=== PATIENT | female | born 1945 | race Caucasian/White ===

== ENCOUNTER → 2016-06-08 | Outpatient (CLI) | payer OTHER ==
[~2016-06-08] MED LIST: CALC600T9 PO; CHOL1000 PO; CLON0.5T3 PO; DSY100 PO; DULO-24 PO; HYDR-5688 PO; LAMO200T PO; LAMO25TA PO; LPT20 PO; MULT-506 PO; POLY335019 PO; TRAZ50TA35 PO
--- NOTE | 2016-06-08 15:13 | DIAGNOSTIC IMAGING REPORT ---
3 phase bone scan BONE SCAN 3 PHASE LIMITED CLINICAL HISTORY: PAIN R SIDE TOTAL SHOULDER TECHNIQUE: Multiphase bone scan following the administration of 25 mCi technetium 99m MDP. COMPARISON STUDY: None FINDINGS: Vascular flow images are unremarkable. No areas of hyperemia are present. Blood pool images are unremarkable. Static delayed images demonstrate a slight increase in activity about the patient's humeral prosthetic. This is also seen adjacent to the screws at the level of the glenoid and tip of the acromion. IMPRESSION: Low-level activity about the patient's right shoulder prosthetic. This is slightly more extensive than would be expected at 9 months post procedure, raising the possibility of a stress related activity versus early loosening Electronically signed by: Simon Alvarez M.D. 06/08/2016 3:11 PM Dictated Date/Time: 06/08/2016 3:06 PM
== END | disposition home or self-care (01) ==
LOC: C.NUCL 09:29
PROVIDERS: ATTEND Orthopaedic Surgery
DX: M25.511 Pain in right shoulder (principal)

== ENCOUNTER → 2016-06-23 | Outpatient (CLI) | payer OTHER ==
[2016-06-23 13:59] LABS: BASO % 0.7 %; BASO ABS # 0.04 K/uL (0-0.2); COMPLETE YES; HEMATOCRIT 38.4 % (37-47); IG% 0.2 %; LYMPH % 29.3 %; MEAN CELL VOLUME 87.9 fL (80-100); MEAN CORPUSCULAR HEMOGLOBIN 30.4 pg (25-34); MEAN CORPUSCULAR HGB CONC 34.6 g/dl (32-36); MEAN PLATELET VOLUME 9.3 fL (7.4-10.4); MONO % 9.1 %; NEUT % 59.7 %; PLATELET COUNT 284 K/uL (130-400); RED BLOOD COUNT 4.37 M/uL (4.2-5.4); WHITE BLOOD COUNT 6.15 K/uL (4.8-10.8)
[2016-06-23 14:19] LABS: ALT/SGPT 20 U/L (12-78); BLOOD UREA NITROGEN 22 mg/dl (7-18); BUN/CREATININE RATIO 18.2 (10-20); CALCIUM 8.9 mg/dl (8.5-10.1); CARBON DIOXIDE 27 mmol/L (21-32); CHLORIDE 107 mmol/L (98-107); CHOLESTEROL 199 mg/dl (0-200); GLUCOSE 88 mg/dl (70-99); POTASSIUM 4.5 mmol/L (3.5-5.1); SODIUM 140 mmol/L (136-145)
[2016-06-23 14:27] LABS: ALB/GLOB RATIO 1.6 (0.9-2); ALKALINE PHOSPHATASE 54 U/L (45-117); AST/SGOT 19 U/L (15-37); CHOLESTEROL/HDL RATIO 3.6; HDL CHOLESTEROL 56 mg/dl; LDL CHOLESTEROL CALCULATED 121 mg/dl; THYROID STIMULATING HORMONE 0.935 uIu/ml (0.300-4.500); TRIGLYCERIDES 112 mg/dl (0-150); VERY LOW DENSITY LIPOPROT CALC 22 mg/dl
== END | disposition home or self-care (01) ==
LOC: C.LABBC 11:18
PROVIDERS: ATTEND Orthopaedic Surgery
DX: Z11.59 Encounter for screening for other viral diseases (principal); E78.5 Hyperlipidemia, unspecified; R73.9 Hyperglycemia, unspecified; E55.9 Vitamin D deficiency, unspecified; R31.29 Other microscopic hematuria; M25.511 Pain in right shoulder

== ENCOUNTER → 2017-01-28 | Outpatient (CLI) | payer OTHER ==
[~2017-01-28] MED LIST changes: -HYDR-5688 PO; -LAMO25TA PO
--- NOTE | 2017-01-29 07:52 | MAMMOGRAPHY REPORT ---
BILATERAL DIGITAL SCREENING MAMMOGRAM WITH CAD: 01/28/2017 CLINICAL HISTORY: Routine screening. Patient has no complaints. TECHNIQUE: Current study was also evaluated with a Computer Aided Detection (CAD) system. Bilateral CC and MLO views were obtained. COMPARISON: Comparison is made to exams dated: 01/15/2015 mammogram, 05/12/2012 mammogram, 05/07/2011 mammogram, 05/01/2010 mammogram - [facility], and 05/04/2008. BREAST COMPOSITION: There are scattered areas of fibroglandular density in both breasts. FINDINGS: No suspicious masses, calcifications, or areas of architectural distortion are noted in ei ther breast. There has been no significant interval change compared to prior exams. IMPRESSION: ACR BI-RADS CATEGORY 1: NEGATIVE There is no mammographic evidence of malignancy. A 1 year screening mammogram is recommended. The pa tient will receive written notification of the results. Approximately 10% of breast cancers are not detected with mammography. A negative mammographic report should not delay biopsy if a clinically suggestive mass is present. Ligia Hare M.D. ah/:01/28/2017 16:05:05 Administrative Sales Assistant: Mary BRADY(R)(M), [facility] letter sent: Normal 1/2 BI-RADS Code: ACR BI-RADS Category 1: Negative
== END | disposition home or self-care (01) ==
LOC: C.MAMM 14:43
PROVIDERS: ATTEND Internal Medicine
DX: Z12.31 Encounter for screening mammogram for malignant neoplasm of breast (principal)

== ENCOUNTER → 2017-02-18 | Outpatient (CLI) | payer OTHER | END | disposition home or self-care (01) | LOC: C.MAMM 13:59 | PROVIDERS: ATTEND Internal Medicine | DX: M81.0 Age-related osteoporosis without current pathological fracture (principal); M51.34 Other intervertebral disc degeneration, thoracic region ==

== ENCOUNTER → 2017-03-30 | Outpatient (CLI) | payer OTHER ==
[2017-03-30 16:21] LABS: ALBUMIN 3.9 gm/dl (3.4-5.0); ALT/SGPT 20 U/L (12-78); AST/SGOT 19 U/L (15-37); BLOOD UREA NITROGEN 22 mg/dl (7-18); CALCIUM 8.7 mg/dl (8.5-10.1); CARBON DIOXIDE 30 mmol/L (21-32); CREATININE 0.89 mg/dl (0.60-1.20); GLUCOSE 82 mg/dl (70-99); SODIUM 137 mmol/L (136-145)
[2017-03-30 16:24] LABS: ALKALINE PHOSPHATASE 62 U/L (45-117); CHOLESTEROL 188 mg/dl (0-200); LDL CHOLESTEROL CALCULATED 99 mg/dl; TOTAL PROTEIN 7.2 gm/dl (6.4-8.2)
== END | disposition home or self-care (01) ==
LOC: C.LAB1850 11:39
PROVIDERS: ATTEND Internal Medicine
DX: E78.5 Hyperlipidemia, unspecified (principal); E55.9 Vitamin D deficiency, unspecified; R31.29 Other microscopic hematuria

== ENCOUNTER → 2017-10-06 | Outpatient (CLI) | payer OTHER ==
[~2017-10-06] MED LIST changes: -CLON0.5T3 PO; +CLON0.5T9 PO; +HYDR-5688 PO; +TRAM-10 PO
[2017-10-06 12:38] LABS: ALBUMIN 4.4 gm/dl (3.4-5.0); ALKALINE PHOSPHATASE 73 U/L (45-117); ALT/SGPT 24 U/L (12-78); AST/SGOT 24 U/L (15-37); BLOOD UREA NITROGEN 17 mg/dl (7-18); CALCIUM 9.1 mg/dl (8.5-10.1); CARBON DIOXIDE 29 mmol/L (21-32); CREATININE 0.97 mg/dl (0.60-1.20); GLUCOSE 90 mg/dl (70-99); POTASSIUM 4.1 mmol/L (3.5-5.1); SODIUM 139 mmol/L (136-145); TOTAL PROTEIN 7.6 gm/dl (6.4-8.2)
== END | disposition home or self-care (01) ==
LOC: C.LAB1850 11:20
PROVIDERS: ATTEND Internal Medicine
DX: R31.29 Other microscopic hematuria (principal); E78.5 Hyperlipidemia, unspecified; E55.9 Vitamin D deficiency, unspecified

== ENCOUNTER 2017-11-02 10:39 | Inpatient (IN) | payer OTHER ==
[2017-10-26 09:20] VITALS: BMI 21.0
[2017-10-27 09:00] VITALS: BMI 21.0
--- NOTE | 2017-10-27 09:12 | PAT Medication Instructions ---
Service Date Oct 27, 2017. Current Home Medication List Atorvastatin (Lipitor), 20 MG PO HS Cholecalciferol (Vitamin D), 1 TAB PO HS Clonazepam (Klonopin), 0.5 MG PO DIRECTED Duloxetine Hcl (Cymbalta), 60 MG PO DAILY AFTERNOON Lamotrigine (Lamictal), 200 MG PO HS Trazodone Hcl (Trazodone), 100 MG PO HS Trazodone Hcl (Trazodone), 25 MG PO BID Medication Instructions For Your Scheduled Surgery - Take the following medications the morning of surgery with a sip of water: Trazodone Hcl (Trazodone), 25 MG PO BID Clonazepam (Klonopin), 0.5 MG PO DIRECTED Duloxetine Hcl (Cymbalta), 60 MG PO DAILY AFTERNOON - Take the following medications as scheduled the night before surgery: Trazodone Hcl (Trazodone), 100 MG PO HS Trazodone Hcl (Trazodone), 25 MG PO BID Lamotrigine (Lamictal), 200 MG PO HS Atorvastatin (Lipitor), 20 MG PO HS Cholecalciferol (Vitamin D), 1 TAB PO HS Clonazepam (Klonopin), 0.5 MG PO DIRECTED If you have any questions please call us at [phone] or [phone] or [phone]
--- NOTE | 2017-10-27 10:03 | DIAGNOSTIC IMAGING REPORT ---
CHEST 2 VIEWS ROUTINE CLINICAL HISTORY: 72 years-old Female presenting with preoperative assessment. TECHNIQUE: PA and lateral views of the chest were obtained. COMPARISON: 07/19/2015. FINDINGS: Atherosclerosis of the aortic arch. Cardiac silhouette normal in size. Lungs and pleural spaces clear. Reverse right total shoulder arthroplasty. Upper abdomen normal. IMPRESSION: 1. No acute cardiopulmonary disease. Electronically signed by: Moreno Wheeler M.D. 10/27/2017 10:02 AM Dictated Date/Time: 10/27/2017 10:02 AM
[2017-10-27 10:22] LABS: BASO % 0.3 %; BASO ABS # 0.03 K/uL (0-0.2); EOS % 0.8 %; EOS ABS # 0.08 K/uL (0-0.5); HEMATOCRIT 41.9 % (37-47); HEMOGLOBIN 14.6 g/dL (12.0-16.0); IG# 0.02 K/uL (0.00-0.02); LYMPH % 18.7 %; LYMPH ABS # 1.82 K/uL (1.2-3.4); MEAN CELL VOLUME 90.9 fL (80-100); MEAN CORPUSCULAR HEMOGLOBIN 31.7 pg (25-34); MEAN CORPUSCULAR HGB CONC 34.8 g/dl (32-36); MEAN PLATELET VOLUME 9.3 fL (7.4-10.4); MONO ABS # 1.07 K/uL (0.11-0.59); NEUT ABS # 6.73 K/uL (1.4-6.5); PLATELET COUNT 318 K/uL (130-400); RED CELL DISTRIBUTION WIDTH CV 14.5 % (11.5-14.5); WHITE BLOOD COUNT 9.75 K/uL (4.8-10.8)
[2017-10-27 10:31] LABS: PTT PATIENT 24.9 SECONDS (21.0-31.0)
--- NOTE | 2017-11-01 09:20 | HISTORY & PHYSICAL EXAMINATION ---
DATE OF ADMISSION: 11/02/2017 CHIEF COMPLAINT: Persistent right shoulder pain. 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 Unfortunately, she has been having anterior shoulder pain since. She has regained full range of motion and has had good strength but has constant anterior shoulder pain. She had a complete workup about a year after her surgery for the shoulder pain. She had a bone scan which showed very minimal uptake around the humeral prosthesis and she had a sed rate and a CRP, which are both within normal limits. She has never been febrile, has never shown any signs of infection. We continued to treat her conservatively. Two years from the index procedure, she was still having similar anterior shoulder pain. She had good function, but constant pain in the anterior aspect of her shoulder. Serial radiographs have never shown any problems with the prosthesis. A repeat bone scan was essentially negative. I did MRI of her cervical spine which showed some minimal pathology in the C5-6 area. I spoke personally with [facility] pain management and they tried a cervical injection which gave her no relief. All of her pain was still located in the anterior aspect of her shoulder. After intense discussions in the office, she is elected to proceed with a revision reverse shoulder arthroplasty. I am planning to see if there is any loosening of the prosthesis and will consider downsizing some of the complements that might be rubbing on the conjoined tendon. She also understands that there is a risk involved with the surgical procedure, but her symptoms are bad enough that she is electing to proceed. PAST MEDICAL HISTORY: Significant for anxiety, depression, hyperlipidemia. PAST SURGICAL HISTORY: Significant for a tubal ligation, detached retina, removal of polyps from her sinuses and a right reverse shoulder arthroplasty. ALLERGIES: None. MEDICATIONS: Include Lexapro, escitalopram, trazodone, lamotrigine, clonazepam and Meloxicam. FAMILY HISTORY: Denies. SOCIAL HISTORY: Patient smokes 5 cigarettes a day and has a couple of drinks a week. REVIEW OF SYSTEMS: She complains mostly of right anterior shoulder pain. All other pertinent review of systems are negative. PHYSICAL EXAMINATION: GENERAL: She is awake, alert and orient x3. She is in no apparent distress. She is very pleasant. HEENT: Pupils are equal, round and reactive to light. Extraocular movements intact. Oral mucosa is pink and moist. HEART: Regular rate per radial pulse. LUNGS: Krista symmetrically bilaterally with no audible breath sounds. ABDOMEN: Soft, nontender, nondistended. MUSCULOSKELETAL: On physical examination of the right shoulder, actively she has very good range of motion about 130 degrees forward elevation and 30 degrees of abduction and 30 degrees of external rotation. She has good strength throughout. Radial, median, ulnar and axillary nerves were all checked and intact. Her incisions well healed. There is no erythema or any signs of infection. All of her pain is located along the anterior deltopectoral interval, right behind the incision in the area of the conjoined tendon. She is tender to palpation in that area. LABS: She currently has a white cell count of 9.75. Her H and H is 14.6 and 41.9. Her sed rate is 2 from 06/23/2016 and her CRP is less than 0.29 from 06/23/2016. IMAGING: Bone scan from 06/08/2016 shows very minimal uptake around the humeral prosthesis and repeat bone scan from 10/04/2017 showed moderately delayed uptake around the prosthesis likely physiologic remodeling changes. No evidence of loosening. IMPRESSION: Painful right reverse shoulder arthroplasty. PLAN: We will proceed with a revision reverse arthroplasty. I am going to use a Gerber TM reverse prosthesis which has a smaller humeral tray and I can still use a 36 mm glenosphere. I am going to check for any currently loosening or malposition of the components and then downsize the humeral tray and remove or release any scar tissue formation. Postoperatively, she will be placed in an arm sling and kept overnight for postoperative medical management. She plans to do outpatient physical therapy upon discharge. LEON
[~2017-11-02] VITALS: Ht 157.5 cm; Wt 52.5 kg
[2017-11-02] VITALS (9 sets, daily range): BP systolic 102–147; BP diastolic 61–77; PULSE 56–78; TEMP 36.4–37.1; O2SAT 92–95; Ht 157.5 cm; Wt 52.5 kg
[2017-11-02] MEDS: TRANEXAMIC ACID INJ 1,000 MG x 2 Bags IV SCH ×4 (06:30→12:56)
[~2017-11-02 10:39] MED LIST changes: +ACETAMINOPHEN 500 MG TAB PO SCH; +ATOR-22 PO; +ATROPINE SULFATE 0.1 MG/ML 5ML SYR IV PRN; +BUPIVACAINE 0.25% 30 ML VIAL ONE; -CALC600T9 PO; +CEFAZOLIN 2000MG IV PUSH 15 ML IV SCH; -CHOL1000 PO; +CHOL1TAB42 PO; -CLON0.5T9 PO; +DEXAMETHASONE SOD INJ 4 MG/ML VIAL ONE; -DSY100 PO; -DULO-24 PO; +DULO60CA44 PO; +EpHEDrine SULFATE 50MG/5ML SYR ONE; +EpHEDrine SULFATE INJ 50 MG/ML AMP IV PRN; +EpINEphrine INJ 1MG/ML AMP 1 MG/ML AMP ONE; +FAMOTIDINE 20 MG TAB PO SCH; +FENTANYL CITRATE INJ 50 MCG/1 ML 2 ML VIAL IV PRN; +FENTANYL CITRATE INJ 50 MCG/1 ML 2 ML VIAL ONE; +GABAPENTIN 300 MG CAP PO SCH; -HYDR-5688 PO; +KLN/5 PO; +LACTATED RINGER'S 1000ML 1,000 ML IV SCH; +LACTATED RINGER'S 1000ML IV SCH; +LIDOCAINE HCL 2% 2 ML VIAL (20MG/ML) ONE; -LPT20 PO; +MIDAZOLAM HCL 1 MG/ML 2ML VIAL ONE; -MULT-506 PO; +ONDANSETRON INJ 2 MG/ML 2 ML VIAL IV PRN; +ONDANSETRON INJ 2 MG/ML 2 ML VIAL ONE; +PHENYLEPHRINE HCL INJ 10 MG/ML VIAL ONE; -POLY335019 PO; +PROMETHAZINE HCL INJ 6.25 MG in SODIUM CHLORIDE 0.9% 50ML 50 ML IV PRN; +PROPOFOL IV EMULSION 10 MG/ML 20 ML VIAL ONE; +ROPIVACAINE 5MG/ML 30 ML 150 MG, BUPIVACAINE 0.5% MPF INJ 30 ML, EpINEphrine HCL INJ 0.... INFIL SCH; -TRAM-10 PO; +TRANEXAMIC ACID INJ 1,000 MG x 1 Bag Intra-Op IV SCH; +TRAZ100T29 PO
--- NOTE | 2017-11-02 11:24 | History & Physical Bridge Note ---
H&P Re-Evaluation Bridge Note: I have examined the patient, reviewed the History & Physical and in the interval since the performance of the History & Physical I have noted the following changes of clinical significance: No changes noted
[2017-11-02] MEDS ORDERED: ORTHO JOINT ANESTHETIC ONE (11:54)
[2017-11-02] MEDS ORDERED: BACITRACIN 50000 UNIT VIAL ONE (11:54)
[2017-11-02] MEDS ORDERED: ONDANSETRON INJ 2 MG/ML 2 ML VIAL IV PRN ×2 (13:15→15:30)
[2017-11-02] MEDS ORDERED: EpHEDrine SULFATE INJ 50 MG/ML AMP IV PRN (13:15)
[2017-11-02] MEDS ORDERED: PROMETHAZINE HCL INJ 6.25 MG in SODIUM CHLORIDE 0.9% 50ML 50 ML IV PRN (13:15)
[2017-11-02] MEDS ORDERED: FENTANYL CITRATE INJ 50 MCG/1 ML 2 ML VIAL IV PRN (13:15)
[2017-11-02] MEDS ORDERED: ATROPINE SULFATE 0.1 MG/ML 5ML SYR IV PRN (13:15)
[2017-11-02] MEDS ORDERED: DEXAMETHASONE SOD INJ 4 MG/ML VIAL ONE (13:23)
[2017-11-02] MEDS ORDERED: ROCURONIUM BROMIDE 10 MG/ML 5 ML VIAL ONE (15:08)
--- NOTE | 2017-11-02 15:28 | [facility] Post Operative Brief Note ---
Immediate Operative Summary Operative Date Nov 02, 2017. Pre-Operative Diagnosis Right Painful Right Arthroplasty Post-Operative Diagnosis Right Painful Right Arthroplasty Procedure(s) Performed Right Revision Total Shoulder Replacement Surgeon Dr. Rayshawn Alba Lead Assistant Manager Surgeon(s) Satish Moss PA-C Estimated Blood Loss 150ml Findings Consistent with Post-Op Diagnosis Specimens a. explanted hardware- right shoulder Anesthesia Type General Regional
[2017-11-02] MEDS ORDERED: SOD PHOSPHATE/SOD BIPHOSPHATE ENEMA 132 ML BTL PR PRN (15:30)
[2017-11-02] MEDS ORDERED: MoRPHine SULFATE 2 MG/ML CARP IV PRN (15:30)
[2017-11-02] MEDS ORDERED: MAGNESIUM HYDROXIDE SUSP 30 ML UDC PO PRN (15:30)
[2017-11-02] MEDS ORDERED: CEFAZOLIN IV 1,000 MG in DEXTROSE 5% 50ML 50 ML IV SCH (15:30)
[2017-11-02] MEDS ORDERED: NALOXONE HCL 0.4 MG/1 ML VIAL/CARP IV PRN (15:30)
[2017-11-02] MEDS ORDERED: OXYCODONE HCL IR 5 MG TAB (IMMEDIATE RELEASE) PO PRN (15:30)
[2017-11-02] MEDS ORDERED: METOCLOPRAMIDE HCL INJ 5 MG/ML 2 ML VIAL IV PRN (15:30)
[2017-11-02] MEDS ORDERED: BISACODYL 10 MG SUPP PR PRN (15:30)
--- NOTE | 2017-11-02 15:35 | Discharge Instructions ---
Discharge Instructions Date of Service Nov 02, 2017. Admission Reason for Admission: Right Shoulder Prosthetic Loosening Discharge Discharge Diagnosis / Problem: Revision Right Reverse Shoulder Discharge Goals Goal(s): Decrease discomfort, Improve function Activity Recommendations Activity Limitations: as noted below . Instructions / Follow-Up Instructions / Follow-Up Activity and Therapy Recommendations: * Wear your sling for 6 weeks, unless otherwise instructed. You may remove your sling to shower and to dress, but otherwise, you should be in your sling at all times, including while sleeping * The shoulder replacement is very stable and you can use your hand while in the sling * Physical Therapy should start about 3-5 days from your day of surgery. Therapy will last about 8-12 weeks * You were shown a series of exercises in the hospital. Do these exercises daily including the exercises you were shown in physical therapy. Medications: * Narcotic You will likely be sent home from the hospital with a prescription for the narcotic pain medication that worked best throughout your stay. * Other medications may be prescribed for specific circumstances. If you have any questions, please call the office at . * Resume previous home medications unless otherwise instructed Dressing Care: If the incision is not draining then you may leave the carloine open to air. If there is a little bit of drainage or if the caroline are getting stuck on your clothing then cover the incision with a dry dressing. The caroline will be removed at your 2 week follow-up appointment. Showering: You may shower 5 days from the day of surgery. Let the soapy shower water run over the caroline and pat them dry. Do not scrub or soak the incision. Things To Watch For: * Drainage from the incision site that occurs more than one week after your surgery. * Increased redness at the incision site. * Fever above 102 degrees Fahrenheit. * Unusual chest pain or shortness of breath. * Call [facility] at with any of the above problems Follow-Up Visit: Follow-up with Dr. Alba 2 weeks after your day of surgery. An appointment was probably scheduled when you signed-up for surgery in the office. If you have any questions call Office Instructions: More detailed instructions as well as Frequently Asked Questions were provided in a folder by our office when you signed-up for surgery. Please review these instructions when you get home. If you have any further questions or concerns, please feel free to call the office at [phone] Current Hospital Diet Patient's current hospital diet: Regular Diet Discharge Diet Recommended Diet: Regular Diet Procedures Procedures Performed: Right Revision Total Shoulder Replacement Pending Studies Studies pending at discharge: no Medical Emergencies . Who to Call and When: Medical Emergencies: If at any time you feel your situation is an emergency, please call 911 immediately. . Non-Emergent Contact Non-Emergency issues call your: Surgeon Call Non-Emergent contact if: wound has increased drainage, wound has increased redness . "Provider Documentation" section prepared by Rayshawn Alba. .
--- NOTE | 2017-11-02 15:53 | DIAGNOSTIC IMAGING REPORT ---
RIGHT SHOULDER 2 VIEWS History: Right shoulder arthroplasty. Postop. FINDINGS: The patient is status post a right reverse total shoulder arthroplasty. The hardware is intact. No dislocation. Bony fragments at the proximal humerus is likely result of the postoperative change. Skin caroline and surgical drains are in place. IMPRESSION: Right reverse total shoulder arthroplasty. Bony fragments at the proximal right humerus is likely a result of the recent postoperative change. Electronically signed by: Dioni Goff M.D. 11/02/2017 3:52 PM Dictated Date/Time: 11/02/2017 3:48 PM
--- NOTE | 2017-11-02 16:32 | Anesthesiology Progress Note ---
Anesthesia Post Op Note Date & Time Nov 02, 2017 at 16:32 Vital Signs Pain Intensity: 0 Vital Signs Past 12 Hours Date Time Temp Pulse Resp B/P (MAP) Pulse Ox O2 Delivery O2 Flow Rate FiO2 11/02/17 16:00 36.5 67 16 136/56 96 Room Air 11/02/17 15:50 72 16 139/70 100 Oxymask 8 11/02/17 15:40 74 16 132/68 100 Oxymask 8 11/02/17 15:30 36.2 71 16 127/71 100 Oxymask 8 11/02/17 11:04 36.7 78 18 141/77 95 Room Air Notes Mental Status: alert / awake / arousable, participated in evaluation Pt Amnestic to Procedure: Yes Nausea / Vomiting: adequately controlled Pain: adequately controlled Airway Patency, RR, SpO2: stable & adequate BP & HR: stable & adequate Hydration State: stable & adequate Anesthetic Complications: no major complications apparent Block working well in pacu
--- NOTE | 2017-11-02 17:43 | OPERATIVE REPORT ---
DATE OF OPERATION: 11/02/2017 PREOPERATIVE DIAGNOSIS: Painful right total shoulder arthroplasty. POSTOPERATIVE DIAGNOSIS: Painful right total shoulder arthroplasty with significant scarring of the conjoined tendon on the humeral tray. PROCEDURE: Revision right reverse shoulder arthroplasty with a revision of both the glenoid and the humeral components. SURGEON: Rayshawn Alba DO PACKAGE DYER: Sandip Moss PA-C, whose assistance was necessary for retraction and closure. ANESTHESIA: General with a right interscalene nerve block. COMPLICATIONS: None. CONDITION: Stable to PACU. IMPLANTS USED: Gerber TM Reverse cemented stem. There was a size 10 with a +9 spacer and a 36 mm +0 retentive polyethylene tray and a new 36 mm eccentric glenosphere. INDICATIONS: Loretta is a 72-year-old female who underwent a right reverse shoulder arthroplasty two years ago. Unfortunately, she had constant anterior shoulder pain since. All of her pain was located anteriorly. I did an extensive workup including infection blood work and bone scan at one year, which was essentially negative. At two years, she was still having pain. I repeated the bone scan and it was negative. I had her see Pain Management. I had her try a cervical injection and none of which helped with her pain. All of her pain was located anteriorly. She is very thin and she is a smoker. I felt it might be scar tissue issue or it might be a problem with the large Biomet humeral tray and after extensive conversations in the office with her and her family about outcomes following revision procedure, she elected to undergo a revision reverse right shoulder arthroplasty. DESCRIPTION OF PROCEDURE: On 11/02/2017, she arrived at [facility] for the above procedure. She was seen in preoperative holding and the operative extremity was identified and signed. She was given a preoperative antibiotic and a right interscalene nerve block. She was taken back to the operating room, laid on the table in supine position and put under general anesthesia. She was then put into the beachchair position. The shoulder was prepped and draped in sterile fashion. Time-out was done. The patient's operative extremity was properly identified. The old deltopectoral approach was used. Dissection was taken down through the fascia and the deltoid was retracted laterally and the conjoined was retracted medially. There was significant scarring of the conjoined tendon on to what was left of the subscapularis and the anterior portion of the humeral tray. There was also a lot of scarring to the undersurface of the deltoid. Significant time was spent removing scar tissue and freeing up all soft tissue planes. The shoulder was brought through a full range of motion and under direct visualization, I did not see any loosening or problems with the components. The humerus was then dislocated and the humeral tray was removed. I saw no signs of infection. There was no loosening of the humeral stem. The glenoid was then exposed. I did remove the glenosphere and I inspected the glenoid baseplate. The glenoid baseplate was intact. I checked to make sure the central screw was fully seated and it was. I put on a new 36 mm eccentric glenosphere. I also made sure the soft tissue was completely released especially inferiorly. The proximal humerus was once again exposed. At this point, I decided to use a Gerber TM Reverse stem because I had a much smaller humeral tray and I figured that it may keep her from scarring again in the future. Flexible osteotomes were used to remove the humeral stem. There was a crack in the lesser and greater tuberosities. Once the humeral stem was removed, the humeral canal was reamed up to a size 10 reamer. A size 10 trial TM Reverse prosthesis was used. The shoulder was reduced and everything felt to be stable. I did decide to cement the stem. A final size 10 TM Reverse stem was then cemented in place with Palacos-G cement. Once cement had hardened, the tuberosities were secured around the prosthesis using #5 FiberWire suture. Several different trials were used to determine tray length and a size 9 retentive liner seemed to be the best fit. The shoulder was then dislocated. A +9 humeral stem spacer was then impacted into place and a 36 mm +0 retentive tray was then snapped into place. The shoulder was reduced, brought through a full range of motion and felt to be stable. The surrounding soft tissues were then injected with 100 mL of an orthopedic pain control cocktail. The wound was then irrigated with 3 liters normal saline solution with bacitracin. The shoulder was brought through a full range of motion. All soft tissue planes seemed freed. The hemostasis was obtained. Skin was closed with 2-0 Vicryl, 3-0 V-Loc suture and caroline. She was placed in a soft dressing and regular arm sling. She was then extubated, transferred to a [facility] and taken to postanesthesia care in stable condition. She tolerated the procedure well. This case took longer than a standard humeral revision case. There was a lot of scar tissue formation, mostly between the conjoined tendon, the subscapularis and the humeral tray. Significant time was spent freeing up scar tissue just to facilitate dislocation of the shoulder than insertion of the components. I attest to the content of the Intraoperative Record and any orders documented therein. Any exception s are noted below.
[2017-11-02] MEDS: KETOROLAC TROMETHAMINE 15 MG/ML VIAL IV. SCH ×2 (17:51→23:25)
[2017-11-02] MEDS: POTASSIUM CHLORIDE INJ 10 MEQ in SODIUM CHLORIDE 0.9% 1000ML 1,000 ML IV SCH (18:01)
[2017-11-02] MEDS: CEFAZOLIN IV 1,000 MG in SYRINGE 0 ML IV SCH (20:44)
[2017-11-02] MEDS: DOCUSATE SODIUM 100 MG CAP PO SCH (20:44)
[2017-11-02] MEDS ORDERED: CHOLECALCIFEROL 1000 INTER.UNIT TAB PO SCH (21:00)
[2017-11-02] MEDS ORDERED: TRAZODONE HCL 100 MG TAB PO SCH (21:00)
[2017-11-02] MEDS ORDERED: CLONAZEPAM 0.5 MG TAB PO SCH (21:00)
[2017-11-02] MEDS ORDERED: SENNA 8.6 MG TAB PO SCH (21:00)
[2017-11-02] MEDS ORDERED: ATORVASTATIN 20 MG TAB PO SCH (21:00)
[2017-11-02] MEDS: ACETAMINOPHEN IV 1,000 MG in EMPTY BAG 0 ML IV SCH (21:59)
[2017-11-03] MEDS: POTASSIUM CHLORIDE INJ 10 MEQ in SODIUM CHLORIDE 0.9% 1000ML 1,000 ML IV SCH (02:52)
[2017-11-03 03:00] VITALS: BP 93/56; PULSE 65; TEMP 36.7; O2SAT 93
[2017-11-03] MEDS: CEFAZOLIN IV 1,000 MG in SYRINGE 0 ML IV SCH (05:32)
[2017-11-03] MEDS: ACETAMINOPHEN IV 1,000 MG in EMPTY BAG 0 ML IV SCH (05:32)
[2017-11-03] MEDS: KETOROLAC TROMETHAMINE 15 MG/ML VIAL IV. SCH (05:33)
[2017-11-03 06:41] LABS: HEMATOCRIT 32.5 % (37-47); HEMOGLOBIN 11.1 g/dL (12.0-16.0); MEAN CELL VOLUME 90.3 fL (80-100); MEAN CORPUSCULAR HEMOGLOBIN 30.8 pg (25-34); MEAN CORPUSCULAR HGB CONC 34.2 g/dl (32-36); MEAN PLATELET VOLUME 8.9 fL (7.4-10.4); PLATELET COUNT 216 K/uL (130-400); RED CELL DISTRIBUTION WIDTH CV 14.4 % (11.5-14.5); RED CELL DISTRIBUTION WIDTH SD 47.9 fL (36.4-46.3); WHITE BLOOD COUNT 12.11 K/uL (4.8-10.8)
--- NOTE | 2017-11-03 07:03 | Clinical Documentation Query ---
CLINICAL DOCUMENTATION QUERY Dr. CULVER, Please document your response in your progress notes. In your clinical opinion is this patient being managed for: ( ) Acute blood loss anemia ( ) Not Agree ( ) Other explanation of clinical findings (No explanation is considered a No Response) ( ) Unable to determine ( ) Need to Discuss (Phone CDS or qliq) (No discussion is considered a No Response) The medical record reflects the following clinical findings, treatment, and risk factors. Clinical Indicators: 72 yo female presenting with a painful right reverse shoulder arthroplasty requiring revision. EBL of 150 cc. Baseline Hgb 14.6, Hct 41.9 dropping to 11.1/32.5. Treatment: monitor CBC Risk Factors: expected surgical blood loss Please clarify and document your clinical opinion in the progress notes and discharge summary. Terms such as "probable", "suspected", "likely", "questionable", "possible", or "still to be ruled out" are acceptable. IF IN AGREEMENT, YOU MUST DOCUMENT ABOVE DIAGNOSTIC STATEMENT IN DAILY PROGRESS NOTES AND DISCHARGE SUMMARY. This document is not part of the patient's record. Thank You, Shonda Park, RN [phone]
[2017-11-03 07:06] LABS: CALCIUM 7.7 mg/dl (8.5-10.1); CREATININE 0.81 mg/dl (0.60-1.20); POTASSIUM 4.3 mmol/L (3.5-5.1)
[2017-11-03] MEDS ORDERED: HYDR-5688 PO (07:13)
[2017-11-03 07:42] VITALS: BP 153/87; PULSE 66; TEMP 36.5; O2SAT 97
--- NOTE | 2017-11-03 08:30 | PROGRESS NOTE ---
DATE: 11/03/2017 CHIEF COMPLAINT: Status post revision, right reverse shoulder arthroplasty, postop day #1. SUBJECTIVE: Loretta was seen and examined at bedside today. Overall, she is doing fairly well. She is not having too much pain in the shoulder. She is able to get some sleep last night. She is wearing her sling as instructed. She has no complaints. OBJECTIVE: VITAL SIGNS: Stable on room air, and she is voiding on her own. EXTREMITIES: On examination of the right arm, her radial, median, and ulnar nerves were all checked and intact at her wrist. Her dressing is clean and dry. She is wearing her sling as instructed. Her axillary nerve was not definitively checked yet. LABORATORY DATA: She has an H and H today of 11.1 and 32.5. Her glucose is 106. IMAGING: X-rays postoperatively of the right shoulder showed the prosthesis to be in near anatomic alignment without any evidence of fracture, dislocation, or loosening. There is an obvious re-creation of the tuberosity around that prosthesis that was noted during the surgery. IMPRESSION: Status post revision, right reverse shoulder arthroplasty postop day #1. PLAN: At this point, she is doing about as well as expected. We are going to go a little bit slower with this. She can do hand, wrist, and elbow exercises today with therapy but no pendulum exercises. We are going to hold off on physical therapy with this shoulder for about 6 weeks while we will wait for the tuberosities to heal. She is stable for discharge to home later today after physical therapy with [place].
--- NOTE | 2017-11-03 08:50 | Anesthesiology Progress Note ---
Anesthesia Post Op Note Date & Time Nov 03, 2017 at 08:50 Vital Signs Pain Intensity: 0.0 Vital Signs Past 12 Hours Date Time Temp Pulse Resp B/P (MAP) Pulse Ox O2 Delivery O2 Flow Rate FiO2 11/03/17 07:42 36.5 66 16 153/87 (109) 97 Room Air 11/03/17 03:00 36.7 65 18 93/56 (68) 93 Room Air 11/02/17 23:30 Room Air 11/02/17 23:01 36.9 58 16 102/61 (75) 94 Room Air Notes Mental Status: alert / awake / arousable, participated in evaluation Pt Amnestic to Procedure: Yes Nausea / Vomiting: adequately controlled Pain: adequately controlled Airway Patency, RR, SpO2: stable & adequate BP & HR: stable & adequate Hydration State: stable & adequate Anesthetic Complications: no major complications apparent
[2017-11-03] MEDS ORDERED: CLONAZEPAM 0.5 MG TAB PO SCH (09:00)
[2017-11-03] MEDS ORDERED: DULOXETINE HCL 60 MG CAP PO SCH (09:00)
[2017-11-03] MEDS ORDERED: TRAZODONE HCL 50 MG TAB PO SCH (09:00)
[2017-11-03] MEDS ORDERED: MULTIVITAMIN TAB PO SCH (09:00)
[2017-11-03] MEDS: DOCUSATE SODIUM 100 MG CAP PO SCH (09:16)
--- NOTE | 2017-11-03 09:29 | DISCHARGE SUMMARY ---
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 PROCEDURE: Revision right reverse shoulder arthroplasty on 11/02/[address] Rayshawn Alba. DISCHARGE INSTRUCTIONS: 1. Fults 5/325 every 6 hours as needed for pain. 2. Lipitor 20 mg at night. 3. Vitamin D 5000 units daily. 4. Klonopin 0.5 mg as directed. 5. Cymbalta 60 mg daily. 6. Lamictal 200 mg at night. 7. Trazodone 100 mg in the evening and 25 mg twice a day. 8. Right arm sling for 6 weeks. 9. Follow up with Dr. Alba in 2 weeks. 10. Call the office of Dr. Alba with any questions or concerns. HOSPITAL COURSE: Loretta is a pleasant 72-year-old female who underwent a reverse right shoulder arthroplasty 2 years ago. She had constant anterior shoulder pain since. She is very small and she is a smoker. Complete workup was negative and after 2 years of pain, she eventually decided to proceed with a revision shoulder arthroplasty. On 11/02/2017, she arrived at [facility] and underwent a revision of right reverse shoulder arthroplasty without complication. Postoperatively, she was placed in an arm sling and discharged to general orthopedic floor. Her hospital course was uneventful. On postop day #1, her H and H was stable at 11.1 and 32.5. She was able to participate with physical therapy, doing hand, wrist, and elbow exercises. Her pain was well controlled and she was subsequently discharged to home with the above instructions.
[2017-11-03 09:30] VITALS: BP 153/87; PULSE 66; TEMP 36.5; O2SAT 97
[2017-11-03 10:31] VITALS: BP 105/62; PULSE 72; O2SAT 100
== END 2017-11-03 11:45 | disposition home or self-care (01) | DRG 483 ==
LOC: C.ACU 10:39 → C.3E 15:34 → ENRESERV 16:01
PROVIDERS: ADMIT Orthopaedic Surgery; ATTEND Orthopaedic Surgery
PROC: 0RRJ00Z Replacement of Right Shoulder Joint with Reverse Ball and Socket Synthetic Substitute, Open Approach (ICD-10-PCS; principal; 2017-11-02 13:10)
PROC: 0RPJ0JZ Removal of Synthetic Substitute from Right Shoulder Joint, Open Approach (ICD-10-PCS; principal; 2017-11-02 13:10)
DX: T84.84XA Pain due to internal orthopedic prosthetic devices, implants and grafts, initial encounter (principal); T84.89XA Other specified complication of internal orthopedic prosthetic devices, implants and grafts, initial encounter; F17.200 Nicotine dependence, unspecified, uncomplicated; F41.8 Other specified anxiety disorders; E78.5 Hyperlipidemia, unspecified; Y79.2 Prosthetic and other implants, materials and accessory orthopedic devices associated with adverse incidents; Y92.019 Unspecified place in single-family (private) house as the place of occurrence of the external cause